=== PATIENT | male | born 1945 | race African-American/Black ===

== ENCOUNTER 2018-03-08 04:43 | Inpatient (IN) | payer OTHER ==
[~2018-03-08] VITALS: Ht 182.9 cm; Wt 105.7 kg
[~2018-03-08 04:43] MED LIST: ASPI325T8 PO; LISI1TAB7 PO; METF500T5 PO; OXYB10TA PO
[2018-03-08] MEDS ORDERED: PANTOPRAZOLE IV PUSH 40 MG VIAL. IVP ONE (06:30)
[2018-03-08] MEDS ORDERED: IV NORMAL SALINE 500ML BAG 500 ML IV ONE (06:30)
--- NOTE | 2018-03-08 06:31 | PHYS DOC ---
Past Medical History Past Medical History: Diabetes-Type II, Hypertension, Other Additional Past Medical Histor: PROSTATE CANCER Past Surgical History: Other Additional Past Surgical Histo: rotator cuff, carpal tunnel, hernia, back Alcohol Use: Heavy Drug Use: None Adult General Chief Complaint Chief Complaint: RECTAL BLEED HPI HPI Patient is a 72 year old male was presenting with rectal bleeding he had multiple episodes of bright red blood per rectum in his diaper this morning no abdominal pain no chest pain no shortness of breath no weakness he has never had this before he is a history of a prostatectomy last year. He is not on anticoagulation no other symptoms Review of Systems Review of Systems Constitutional: Denies fever or chills [] Eyes: Denies change in visual acuity, redness, or eye pain [] HENT: Denies nasal congestion or sore throat [] Respiratory: Denies cough or shortness of breath [] Cardiovascular: No additional information not addressed in HPI [] : Denies dysuria or hematuria [] Endocrine: Denies polyuria or polydipsia [] All other systems were reviewed and found to be within normal limits, except as documented in this note. Current Medications Current Medications Current Medications Medications (Trade) Dose Ordered Sig/Danilo Start Time Stop Time Status Last Admin Dose Admin Pantoprazole Sodium (PROTONIX VIAL for IV PUSH) 40 mg 1X ONCE 03/08/18 06:30 03/08/18 06:35 DC 03/08/18 07:24 40 MG Pantoprazole Sodium 80 mg/ Sodium Chloride 100 ml @ 10 mls/hr Q10H 03/08/18 06:45 03/08/18 07:24 10 MLS/HR Sodium Chloride 500 ml @ 500 mls/hr 1X ONCE 03/08/18 06:30 03/08/18 07:29 DC 03/08/18 07:26 500 MLS/HR Allergies Allergies Allergies Coded Allergies Type Severity Reaction Last Updated Verified No Known Drug Allergies 08/03/13 No Physical Exam Physical Exam Constitutional: Well developed, well nourished, no acute distress, non-toxic appearance. [] HENT: Normocephalic, atraumatic, bilateral external ears normal, oropharynx moist, no oral exudates, nose normal. [] Eyes: PERRLA, EOMI, conjunctiva normal, no discharge. [] Neck: Normal range of motion, no tenderness, supple, no stridor. [] Pulmonary: Normal respiratory effort no increased work of breathing no obvious chest wall trauma Abdomen: Bowel sounds normal, soft, no tenderness, no masses, no pulsatile masses. [] rectal: there is marroon colored stool no external hemorrhoid. Skin: Warm, dry, no erythema, no rash. [] Back: No tenderness, no CVA tenderness. [] Extremities: No tenderness, no cyanosis, no clubbing, ROM intact, no edema. [] Neurologic: Alert and oriented X 3, normal motor function, normal sensory function, no focal deficits noted. [] Psychologic: Affect normal, judgement normal, mood normal. [] Current Patient Data Vital Signs Vital Signs Date Time Temp Pulse Resp B/P (MAP) Pulse Ox O2 Delivery O2 Flow Rate FiO2 03/08/18 06:48 69 179/92 (121) 98 Room Air 03/08/18 05:50 98.2 14 98.2 Lab Values Laboratory Tests Test 03/08/18 06:50 White Blood Count 3.6 x10^3/uL (4.0-11.0) L Red Blood Count 3.74 x10^6/uL (4.30-5.70) L Hemoglobin 12.5 g/dL (13.0-17.5) L Hematocrit 36.6 % (39.0-53.0) L Mean Corpuscular Volume 98 fL (79-100) Mean Corpuscular Hemoglobin 33 pg (25-35) Mean Corpuscular Hemoglobin Concent 34 g/dL (31-37) Red Cell Distribution Width 13.9 % (11.5-14.5) Platelet Count 231 x10^3/uL (140-400) Neutrophils (%) (Auto) 57 % (31-73) Lymphocytes (%) (Auto) 31 % (24-48) Monocytes (%) (Auto) 9 % (0-9) Eosinophils (%) (Auto) 3 % (0-3) Basophils (%) (Auto) 1 % (0-3) Neutrophils # (Auto) 2.0 x10^3uL (1.8-7.7) Lymphocytes # (Auto) 1.1 x10^3/uL (1.0-4.8) Monocytes # (Auto) 0.3 x10^3/uL (0.0-1.1) Eosinophils # (Auto) 0.1 x10^3/uL (0.0-0.7) Basophils # (Auto) 0.0 x10^3/uL (0.0-0.2) Prothrombin Time 12.6 SEC (11.7-14.0) Prothrombin Time INR 1.0 (0.8-1.1) Sodium Level 134 mmol/L (136-145) L Potassium Level 3.8 mmol/L (3.5-5.1) Chloride Level 105 mmol/L (98-107) Carbon Dioxide Level 24 mmol/L (21-32) Anion Gap 5 (6-14) L Blood Urea Nitrogen 18 mg/dL (8-26) Creatinine 0.9 mg/dL (0.7-1.3) Estimated GFR (Cockcroft-Gault) 100.9 BUN/Creatinine Ratio 20 (6-20) Glucose Level 145 mg/dL (70-99) H Calcium Level 8.9 mg/dL (8.5-10.1) Total Bilirubin 0.4 mg/dL (0.2-1.0) Aspartate Amino Transferase (AST) 20 U/L (15-37) Alanine Aminotransferase (ALT) 33 U/L (16-63) Alkaline Phosphatase 64 U/L (46-116) Total Protein 6.4 g/dL (6.4-8.2) Albumin 2.9 g/dL (3.4-5.0) L Albumin/Globulin Ratio 0.8 (1.0-1.7) L Laboratory Tests 03/08/18 06:50 Laboratory Tests 03/08/18 06:50 EKG EKG [] Radiology/Procedures Radiology/Procedures [] Course & Med Decision Making Course & Med Decision Making Pertinent Labs and Imaging studies reviewed. (See chart for details) []GI bleed maroon-colored stool per rectum no previous history of same hemodynamically stable. IV Protonix IV fluids plan to admit for further treatment. admit to [facility] Disclaimer Ofelia Disclaimer This electronic medical record was generated, in whole or in part, using a voice recognition dictation system. Departure Departure Impression: Primary Impression: GI bleed Disposition: ADMITTED INPATIENT Admitting Physician: Xie. Pruitt Condition: STABLE Referrals: PINEDA HENAO Jr, MD (PCP) PETER SPRINGER MD Mar 08, 2018 06:31
[2018-03-08 07:04] LABS: BASO % 1 % (0-3); EOS # 0.1 x10^3/uL (0.0-0.7); EOS % 3 % (0-3); HEMATOCRIT 36.6 % (39.0-53.0); HEMOGLOBIN 12.5 g/dL (13.0-17.5); LYMPH # 1.1 x10^3/uL (1.0-4.8); LYMPH % 31 % (24-48); MEAN CORPUSCULAR HEMOGLOBIN 33 pg (25-35); MEAN CORPUSCULAR HGB CONC 34 g/dL (31-37); MEAN CORPUSCULAR VOLUME 98 fL (79-100); MONO # 0.3 x10^3/uL (0.0-1.1); MONO % 9 % (0-9); NEUT % 57 % (31-73); PLATELET COUNT 231 x10^3/uL (140-400); RED BLOOD COUNT 3.74 x10^6/uL (4.30-5.70); RED CELL DISTRIBUTION WIDTH 13.9 % (11.5-14.5); WHITE BLOOD COUNT 3.6 x10^3/uL (4.0-11.0)
[2018-03-08 07:12] LABS: PROTHROMBIN TIME PATIENT 12.6 SEC (11.7-14.0)
[2018-03-08 07:19] LABS: CALCIUM 8.9 mg/dL (8.5-10.1); CREATININE 0.9 mg/dL (0.7-1.3); GFR 100.9; POTASSIUM 3.8 mmol/L (3.5-5.1)
[2018-03-08 07:21] LABS: ALBUMIN 2.9 g/dL (3.4-5.0); ALBUMIN/GLOBULIN RATIO 0.8 (1.0-1.7); TOTAL BILIRUBIN 0.4 mg/dL (0.2-1.0); TOTAL PROTEIN 6.4 g/dL (6.4-8.2)
[2018-03-08] MEDS: PANTOPRAZOLE SODIUM IV DRIP 80 MG in IV NORMAL SALINE 100ML 100 ML IV SCH ×2 (07:24→20:15)
[2018-03-08 08:14] LABS: FECAL OB PT POSITIVE (NEG)
[2018-03-08] MEDS: hydroCHLOROthiazide 25 MG TABLET PO SCH (09:00)
[2018-03-08] MEDS ORDERED: MORPHINE SULFATE 2 MG/ML VIAL. IV PRN (09:00)
[2018-03-08] MEDS ORDERED: ACETAMINOPHEN 500 MG TABLET PO PRN (09:00)
[2018-03-08] MEDS ORDERED: ONDANSETRON ODT 4 MG TAB.RAPDIS. PO PRN (09:00)
[2018-03-08] MEDS: LISINOPRIL 20 MG TABLET PO SCH (09:00)
[2018-03-08] MEDS ORDERED: ONDANSETRON PF 4 MG/2 ML VIAL. IV PRN (09:00)
[2018-03-08] MEDS ORDERED: cloNIDine HCL 0.1 MG TABLET PO PRN (09:00)
--- NOTE | 2018-03-08 11:13 | EKG ---
[facility] [address] [place] [address] Test Date: 2018-03-08 Test Time: 06:37:03 Pat Name: TONI SINHA Department: Room: 574 1 Gender: M Real Estate Executive Assistant: : 1945 Requested By: PETER SPRINGER Order Number: [id number] Reading MD: Miguel Spencer MD Measurements Intervals [place] Rate: 69 P: -36 SC: 184 QRS: -44 QRSD: 102 T: 99 QT: 404 QTc: 434 Interpretive Statements SINUS RHYTHM ABNORMAL LEFT AXIS DEVIATION LEFT ANTERIOR FASCICULAR BLOCK LVH WITH REPOLARIZATION ABNORMALITY ABNORMAL ECG Electronically Signed On 03-09-2018 10:48:08 CDT by Miguel Spencer MD
[2018-03-08] MEDS ORDERED: ALPRAZolam 0.25 MG TABLET PO PRN (14:00)
[2018-03-08] MEDS ORDERED: NICOTINE 21MG PATCH. TD PRN (14:00)
[2018-03-08] MEDS ORDERED: chlordiazePOXIDE HCL 25 MG CAPSULE PO PRN (14:00)
--- NOTE | 2018-03-08 14:04 | PDOC1 ---
History and Physical Date of Admission Date of Admission DATE: 03/08/18 TIME: 13:58 Identification/Chief Complaint Chief Complaint Maroon stools today Source Source: Caregiver, Chart review, Patient History of Present Illness History of Present Illness 72-year-old -[place] male who does not take any NSAIDs on a daily basis , maroon stools today multiple episodes, so far hemodynamically stable, vital signs and hemoglobin is 12.5. INR is 1.0. Hemoccult positive. Was taking aspirin 325 based on home medications. But today has been called by RN because of still continuing maroon stools. If this continues to happen I will transfer to ICU. No CAT scan ordered, could be diverticular bleed, I will order CAT scan and a stat bleeding scan. GI has been consulted, started on Protonix drip by ER. I will make nothing by mouth for now. Repeat H&H now. Hemoglobin is 12.56 or 7 hours ago. Discussed with RN Smoker,and heavy drinker he admits to me Denies any abdominal cramps, last colonoscopy was maybe over 5 years ago, just polyps Denies family or personal history of colon cancer Denies previous episodes of similar sxs Past Medical History Cardiovascular: HTN Renal/: Prostate Ca. Past Surgical History Past Surgical History: No pertinent history Family History Family History: Hypertension Social History Smoke: 1 pack per day ALCOHOL: heavy Drugs: None Current Problem List Problem List Problems Medical Problems: (1) GI bleed Status: Acute Current Medications Current Medications Current Medications Pantoprazole Sodium 80 mg/ Sodium Chloride 100 ml @ 10 mls/hr Q10H IV Last administered on 03/08/18at 07:24; Start 03/08/18 at 06:45 Pantoprazole Sodium (PROTONIX VIAL for IV PUSH) 40 mg 1X ONCE IVP Last administered on 03/08/18at 07:24; Start 03/08/18 at 06:30; Stop 03/08/18 at 06:35 ; Status DC Sodium Chloride 500 ml @ 500 mls/hr 1X ONCE IV Last administered on at 07:26; Start 03/08/18 at 06:30; Stop 03/08/18 at 07:29; Status DC Acetaminophen (Tylenol) 500 mg PRN Q6HRS PRN PO MILD PAIN / TEMP; Start at 09:00 Ondansetron HCl (Zofran) 4 mg PRN Q6HRS PRN IV NAUSEA/VOMITING; Start 03/08/18 at 09:00 Ondansetron HCl (Zofran Odt) 4 mg PRN Q6HRS PRN PO NAUSEA/VOMITING; Start 03/08 at 09:00 Clonidine HCl (Catapres) 0.1 mg PRN Q1HR PRN PO HYPERTENSION, SEE COMMENTS; Start 03/08/18 at 09:00 Lisinopril (Prinivil) 20 mg DAILY PO ; Start 03/08/18 at 09:00 Morphine Sulfate (Morphine Sulfate) 2 mg PRN Q2HR PRN IV PAIN; Start 03/08/18 at 09:00 Hydrochlorothiazide (Hydrodiuril) 25 mg DAILY PO ; Start 03/08/18 at 09:00 Active Scripts Active Reported Aspirin 325 Mg Tablet 325 Mg PO DAILY Lisinopril-Hctz 20-25 Mg Tab (Lisinopril/Hydrochlorothiazide) 1 Each Tablet 1 Each PO DAILY Allergies Allergies: Coded Allergies: No Known Drug Allergies (Unverified , 08/03/13) ROS Review of System Asper history of present illness, he denies any abdominal cramps, no diarrhea, the rest of ROS negative Physical Exam General: Alert, Oriented X3, Cooperative, No acute distress HEENT: Atraumatic, PERRLA, EOMI, Mucous membr. moist/pink Lungs: Clear to auscultation, Normal air movement Heart: S1S2, RRR, no thrills, no rubs, no gallops Cardiovascular: S1, S2 Breasts: Normal, Rt breast nml w/o mass, Lt breast nml w/o mass, Nipples normal Abdomen: Normal bowel sounds, Soft, No tenderness, No hepatosplenomegaly, No masses Male Genitals Exam: normal genitalia, normal prostate Rectal Exam: not examined PELVIC: Nml ext genitalia Extremities: No clubbing, No cyanosis, No edema, Normal pulses, No tenderness/ swelling Skin: No rashes, No breakdown, No significant lesion Neuro: Normal gait, Normal speech, Strength at 5/5 X4 ext, Normal tone, Sensation intact, Cranial nerves 3-12 NL, Reflexes 2+ Psych/Mental Status: Mental status NL, Mood NL Vitals Vitals Vital Signs Date Time Temp Pulse Resp B/P (MAP) Pulse Ox O2 Delivery O2 Flow Rate FiO2 8/26/18 06:48 69 179/92 (121) 98 Room Air 03/08/18 05:50 98.2 14 98.2 Labs Labs Laboratory Tests Test 03/08/18 06:20 03/08/18 06:50 03/08/18 10:42 Stool Occult Blood Positive (NEG) White Blood Count 3.6 x10^3/uL (4.0-11.0) Red Blood Count 3.74 x10^6/uL (4.30-5.70) Hemoglobin 12.5 g/dL (13.0-17.5) Hematocrit 36.6 % (39.0-53.0) Mean Corpuscular Volume 98 fL (79-100) Mean Corpuscular Hemoglobin 33 pg (25-35) Mean Corpuscular Hemoglobin Concent 34 g/dL (31-37) Red Cell Distribution Width 13.9 % (11.5-14.5) Platelet Count 231 x10^3/uL (140-400) Neutrophils (%) (Auto) 57 % (31-73) Lymphocytes (%) (Auto) 31 % (24-48) Monocytes (%) (Auto) 9 % (0-9) Eosinophils (%) (Auto) 3 % (0-3) Basophils (%) (Auto) 1 % (0-3) Neutrophils # (Auto) 2.0 x10^3uL (1.8-7.7) Lymphocytes # (Auto) 1.1 x10^3/uL (1.0-4.8) Monocytes # (Auto) 0.3 x10^3/uL (0.0-1.1) Eosinophils # (Auto) 0.1 x10^3/uL (0.0-0.7) Basophils # (Auto) 0.0 x10^3/uL (0.0-0.2) Prothrombin Time 12.6 SEC (11.7-14.0) Prothromb Time International Ratio 1.0 (0.8-1.1) Sodium Level 134 mmol/L (136-145) Potassium Level 3.8 mmol/L (3.5-5.1) Chloride Level 105 mmol/L (98-107) Carbon Dioxide Level 24 mmol/L (21-32) Anion Gap 5 (6-14) Blood Urea Nitrogen 18 mg/dL (8-26) Creatinine 0.9 mg/dL (0.7-1.3) Estimated GFR (Cockcroft-Gault) 100.9 BUN/Creatinine Ratio 20 (6-20) Glucose Level 145 mg/dL (70-99) Calcium Level 8.9 mg/dL (8.5-10.1) Total Bilirubin 0.4 mg/dL (0.2-1.0) Aspartate Amino Transf (AST/SGOT) 20 U/L (15-37) Alanine Aminotransferase (ALT/SGPT) 33 U/L (16-63) Alkaline Phosphatase 64 U/L (46-116) Total Protein 6.4 g/dL (6.4-8.2) Albumin 2.9 g/dL (3.4-5.0) Albumin/Globulin Ratio 0.8 (1.0-1.7) Glucose (Fingerstick) 157 mg/dL (70-99) Laboratory Tests Test 03/08/18 06:20 03/08/18 06:50 03/08/18 10:42 Stool Occult Blood Positive (NEG) White Blood Count 3.6 x10^3/uL (4.0-11.0) Red Blood Count 3.74 x10^6/uL (4.30-5.70) Hemoglobin 12.5 g/dL (13.0-17.5) Hematocrit 36.6 % (39.0-53.0) Mean Corpuscular Volume 98 fL (79-100) Mean Corpuscular Hemoglobin 33 pg (25-35) Mean Corpuscular Hemoglobin Concent 34 g/dL (31-37) Red Cell Distribution Width 13.9 % (11.5-14.5) Platelet Count 231 x10^3/uL (140-400) Neutrophils (%) (Auto) 57 % (31-73) Lymphocytes (%) (Auto) 31 % (24-48) Monocytes (%) (Auto) 9 % (0-9) Eosinophils (%) (Auto) 3 % (0-3) Basophils (%) (Auto) 1 % (0-3) Neutrophils # (Auto) 2.0 x10^3uL (1.8-7.7) Lymphocytes # (Auto) 1.1 x10^3/uL (1.0-4.8) Monocytes # (Auto) 0.3 x10^3/uL (0.0-1.1) Eosinophils # (Auto) 0.1 x10^3/uL (0.0-0.7) Basophils # (Auto) 0.0 x10^3/uL (0.0-0.2) Prothrombin Time 12.6 SEC (11.7-14.0) Prothromb Time International Ratio 1.0 (0.8-1.1) Sodium Level 134 mmol/L (136-145) Potassium Level 3.8 mmol/L (3.5-5.1) Chloride Level 105 mmol/L (98-107) Carbon Dioxide Level 24 mmol/L (21-32) Anion Gap 5 (6-14) Blood Urea Nitrogen 18 mg/dL (8-26) Creatinine 0.9 mg/dL (0.7-1.3) Estimated GFR (Cockcroft-Gault) 100.9 BUN/Creatinine Ratio 20 (6-20) Glucose Level 145 mg/dL (70-99) Calcium Level 8.9 mg/dL (8.5-10.1) Total Bilirubin 0.4 mg/dL (0.2-1.0) Aspartate Amino Transf (AST/SGOT) 20 U/L (15-37) Alanine Aminotransferase (ALT/SGPT) 33 U/L (16-63) Alkaline Phosphatase 64 U/L (46-116) Total Protein 6.4 g/dL (6.4-8.2) Albumin 2.9 g/dL (3.4-5.0) Albumin/Globulin Ratio 0.8 (1.0-1.7) Glucose (Fingerstick) 157 mg/dL (70-99) VTE Prophylaxis Ordered VTE Prophylaxis Devices: Contraindicated VTE Pharmacological Prophylaxi: Contraindicated Assessment/Plan Assessment/Plan Active GI bleed, maroon stools Aspirin use in a daily basis Smoker, greater than a pack a day Heavy alcohol drinker Obesity BMI 32 History of prostate cancer remote past History of colonic polyps last colonoscopy Hemoccult-positive Mild hyponatremia Accelerated hypertension POA Plan: Admit, nothing by mouth for now Protonic strip started by ER IV fluids while nothing by mouth GI consult Stat CAT scan of abdomen and bleeding scan H&H now then q6 HOdl ASA If this continues I will transfer to ICU CIWAprotocol Nicotine patch when necessary Control BP Discussed with RN cc 32 PARIS BOJORQUEZ Y Mar 08, 2018 14:04
[2018-03-08] MEDS ORDERED: IOHEXOL 240 MG/ML 50ML VIAL. PO ONE (14:30)
[2018-03-08] MEDS ORDERED: IOHEXOL 300 MG/ML 100ML VIAL. IV ONE (14:30)
[2018-03-08 14:33] LABS: HEMATOCRIT 34.3 % (39.0-53.0); HEMOGLOBIN 11.9 g/dL (13.0-17.5)
[2018-03-08 15:52] VITALS: BP 136/94
--- NOTE | 2018-03-08 15:55 | PDOC ---
Subjective: Subjective: patient in radiology Objective: Vital Signs: Vital Signs Date Time Temp Pulse Resp B/P (MAP) Pulse Ox O2 Delivery O2 Flow Rate FiO2 03/08/18 15:52 97.9 63 18 136/94 (108) 98 Room Air 97.9 Labs: Laboratory Tests Test 03/08/18 10:42 Glucose (Fingerstick) 157 mg/dL (70-99) A/P: Pt in radiology. Will be seen tomorrow. Please call with any new concerns SRAVANI YANEZ MD Mar 08, 2018 15:55
--- NOTE | 2018-03-08 16:13 | RAD ---
EXAM: Abdomen and pelvis CT with intravenous contrast. HISTORY: Rectal bleeding. TECHNIQUE: Computed tomographic images of the abdomen and pelvis were obtained following the administration of 75 cc Omnipaque 300 intravenous contrast. Multiplanar reformatting was performed. *One or more of the following individualized dose reduction techniques were utilized for this examination: 1. Automated exposure control. 2. Adjustment of the mA and/or kV according to patient size. 3. Use of iterative reconstruction technique. COMPARISON: 02/26/2014. FINDINGS: Evaluation of the lower thorax demonstrates posterior dependent and basilar atelectasis. There is no pleural effusion or pneumothorax. There is slight hepatic steatosis with fatty infiltration along the falciform ligament. No suspicious hepatic lesion is seen. The gallbladder, pancreas and spleen are unremarkable. There is a focus of fluid density along the distal body of the pancreas which is likely due to volume averaging of fat rather than a cyst. There are multiple bilateral renal cysts, the largest of which measures 2.7 cm on the right. There is a 2.0 cm left adrenal nodule. There is no obstructive uropathy. The bladder is unremarkable. The appendix is normal in appearance. There is moderate colonic stool. There is distal colonic diverticulosis. There is no convincing diverticulitis. There is no lymphadenopathy. There is no aortic aneurysm. There is a tiny fat-containing umbilical hernia. There is degenerative change throughout the spine and both hips. There are laminectomy changes at L4. IMPRESSION: 1. Distal colonic diverticulosis without convincing diverticulitis. 2. Multiple renal cysts. 3. Suspected slight hepatic steatosis. 4. Tiny umbilical hernia. 5. 2.0 cm left adrenal nodule. The long-term stability favors a benign adenoma. Electronically signed by: Felicita Montoya MD (03/08/2018 4:10 PM) [facility]
--- NOTE | 2018-03-08 18:11 | RAD ---
NUCLEAR MEDICINE TAGGED RBC SCAN Clinical Indication: Maroon bloody stool, several episodes today COMPARISON: CT abdomen pelvis same day Technique: Patient was injected with 24.0 mCi of technetium 99m labeled red blood cells using Ultratag technique. Then anterior dynamic images of the abdomen were obtained for 60 minutes. Findings: There is gradual accumulation of tracer in the left hemiabdomen to indicate an active GI bleed. IMPRESSION: There is gradual accumulation of tracer in the left hemiabdomen to indicate an active GI bleed. In comparing with patient's anatomy on CT from the same day, the area of GI bleed appears to correspond to the distal descending/rectosigmoid colon and may be diverticular in origin. CRITICAL FINDINGS: These findings were discussed with patient's nurse Marti at 6:05 PM on 03/08/2018. Electronically signed by: Eb Canales MD (03/08/2018 6:08 PM) [facility]
[2018-03-08] MEDS: IV NORMAL SALINE 1000ML BAG 1,000 ML IV SCH (18:31)
[2018-03-08 19:00] VITALS: BP 144/72
[2018-03-08 19:56] LABS: HEMATOCRIT 32.3 % (39.0-53.0); HEMOGLOBIN 11.1 g/dL (13.0-17.5)
[2018-03-08 20:10] VITALS: BP 158/74
[2018-03-08 21:00] VITALS: BP 139/71
[2018-03-08 22:00] VITALS: BP 144/66
[2018-03-08 23:00] VITALS: BP 156/82
[2018-03-09] VITALS (16 sets, daily range): BP systolic 119–188; BP diastolic 57–97
[2018-03-09 01:08] LABS: HEMATOCRIT 29.7 % (39.0-53.0); HEMOGLOBIN 10.5 g/dL (13.0-17.5)
[2018-03-09] MEDS: PANTOPRAZOLE SODIUM IV DRIP 80 MG in IV NORMAL SALINE 100ML 100 ML IV SCH (04:44)
[2018-03-09] MEDS: IV NORMAL SALINE 1000ML BAG 1,000 ML IV SCH ×3 (04:52→13:58)
[2018-03-09 07:33] LABS: HEMATOCRIT 31.5 % (39.0-53.0); HEMOGLOBIN 11.1 g/dL (13.0-17.5)
[2018-03-09] MEDS ORDERED: FOLIC ACID 1 MG TABLET. PO SCH (09:00)
[2018-03-09] MEDS ORDERED: THIAMINE 100 MG TABLET. PO SCH (09:00)
[2018-03-09] MEDS: MULTIVITAMIN with MINERAL TABLET. PO SCH (09:00)
[2018-03-09] MEDS: hydroCHLOROthiazide 25 MG TABLET PO SCH (09:28)
[2018-03-09] MEDS: LISINOPRIL 20 MG TABLET PO SCH (09:29)
[2018-03-09] MEDS ORDERED: POLYETHYLENE GLYCOL 3350 17 GM PACKET. PO PRN (10:00)
--- NOTE | 2018-03-09 10:00 | PDOC2 ---
GI CONSULT Reason For Consult: GI Bleed, maroon stools HPI: HPI: 72 y/o male who passed dark red blood several times yesterday - says significant amount. Possibly precipitated by straining and passing hard stools. Denies n/v, reflux/dysphagia, abd pain, diarrhea, and weight loss. No h/o bleeding in the past. On ASA 81mg QD + ibuprofen PRN. Last colonoscopy ~4 years ago @ [facility], reportedly w/ a benign polyp. Distal diverticulosis noted on CT. Bleeding scan was positive in left hemiabdomen. Hgb from 12.5 to 11.5 ( check 5 times since admission) - for comparison, in 14s in 2013 and 2015. MCV, plt, RDW, INR, and BUN are normal. Has been hypertensive. Has passed brown stools in ICU. IR has seen, plans to observe. No previous EGD. No GB, liver, or pancreas history. Does have h/o prostate cancer s/p prostatectomy and radiation. PMH: PMH: HTN, DM, prostate cancer lumbar laminectomy, I&D perirectal abscess, bilateral CTR, prostatectomy, hernia repair FH: Family History: Cancer (father - colon) Social History: Smoke: 1 pack per day ALCOHOL: heavy (1.5 pints daily) Drugs: None ROS: GEN: Denies fevers, chills, sweats HEENT: Denies blurred vision, sore throat CV: Denies chest pain RESP: Denies shortness of air, cough GI: Per HPI : Denies hematuria, dysuria ENDO: Denies weight changes NEURO: Denies confusion, dizziness MSK: Denies weakness, joint pain/swelling SKIN: Denies jaundice, pruritus Vitals: Vitals: Vital Signs Date Time Temp Pulse Resp B/P (MAP) Pulse Ox O2 Delivery O2 Flow Rate FiO2 03/09/18 09:29 80 160/63 03/09/18 09:00 16 99 Room Air 03/09/18 07:00 98.2 98.2 Labs: Labs: Laboratory Tests Test 03/08/18 10:42 03/08/18 14:25 03/08/18 17:17 03/08/18 19:40 Glucose (Fingerstick) 157 mg/dL (70-99) 98 mg/dL (70-99) Hemoglobin 11.9 g/dL (13.0-17.5) 11.1 g/dL (13.0-17.5) Hematocrit 34.3 % (39.0-53.0) 32.3 % (39.0-53.0) Mean Corpuscular Hemoglobin Concent 35 g/dL (31-37) 34 g/dL (31-37) Test 03/09/18 00:30 03/09/18 07:06 Hemoglobin 10.5 g/dL (13.0-17.5) 11.1 g/dL (13.0-17.5) Hematocrit 29.7 % (39.0-53.0) 31.5 % (39.0-53.0) Mean Corpuscular Hemoglobin Concent 36 g/dL (31-37) 35 g/dL (31-37) Allergies: Coded Allergies: No Known Drug Allergies (Unverified , 08/03/13) Medications: Current Medications Medications (Trade) Dose Ordered Sig/Danilo Route PRN Reason Start Time Stop Time Status Last Admin Dose Admin Sodium Chloride 1,000 ml @ 100 mls/hr Q10H IV 03/08/18 14:00 03/09/18 04:52 Iohexol (Omnipaque 300 Mg/ml) 75 ml 1X ONCE IV 03/08/18 14:30 03/08/18 14:31 DC 03/08/18 14:30 Iohexol (Omnipaque 240 Mg/ml) 50 ml 1X ONCE PO 03/08/18 14:30 03/08/18 14:31 DC 03/08/18 14:30 Imaging: Imaging: CT A/P IMPRESSION: 1. Distal colonic diverticulosis without convincing diverticulitis. 2. Multiple renal cysts. 3. Suspected slight hepatic steatosis. 4. Tiny umbilical hernia. 5. 2.0 cm left adrenal nodule. The long-term stability favors a benign adenoma. GI Bleed Scan IMPRESSION: There is gradual accumulation of tracer in the left hemiabdomen to indicate an active GI bleed. In comparing with patient's anatomy on CT from the same day, the area of GI bleed appears to correspond to the distal descending/ rectosigmoid colon and may be diverticular in origin. PE: GEN: NAD HEENT: Atraumatic, PERRL LUNGS: CTAB HEART: RRR ABD: NABS, S/ND/NT EXTREMITY: No edema SKIN: No rashes, no jaundice NEURO/PSYCH: A & O 3 A/P: A/P: Rectal bleeding - resolved -distal diverticulosis on CT, bleeding scan + left abd -h/o prostate cancer s/p surgery and radiation -?element of constipation CRC screen, h/o polyp, FH colon cancer -last colonoscopy ~4 years ago Alcohol overuse -- Bleeding seems resolved, Hgb stable. Try clears, observe out of ICU. Can consider inpt or outpt colonoscopy depending on clinical course - will follow-up this afternoon. Change PPI from drip to PO, add Miralax PRN. SYED BROWN Mar 09, 2018 10:00
[2018-03-09] MEDS: PANTOPRAZOLE 40 MG TABLET.DR. PO SCH (10:47)
--- NOTE | 2018-03-09 12:22 | PDOC ---
PROGRESS NOTES Chief Complaint Chief Complaint Active GI bleed, maroon stools 2/2 divercular bleeding likely Aspirin use in a daily basis , no NSAIDS Smoker, greater than a pack a day Heavy alcohol drinker Obesity BMI 32 History of prostate cancer remote past History of colonic polyps last colonoscopy Hemoccult-positive Mild hyponatremia Accelerated hypertension POA left adrenal 2cm adenoma plan: fu with GI ok transfer out of icu on ivf, clear liquid diet off protonix drip, protonix 40mg po daily cont home HTN meds, hold asa for now talked to GI, talked to at bedside History of Present Illness History of Present Illness ROS: no fever, chills, sob or chest pain 2 brown BM overnight no abd pain, no NV hb stable at 11 + bleeding scan but neg CTA. Vitals Vitals Vital Signs Date Time Temp Pulse Resp B/P (MAP) Pulse Ox O2 Delivery O2 Flow Rate FiO2 03/09/18 12:00 98.7 79 16 159/67 (97) 99 Room Air 98.7 Physical Exam General: Alert, Oriented X3, Cooperative, No acute distress Heart: Regular rate, Normal S1, Normal S2 Lungs: Clear Abdomen: Normal bowel sounds, Soft, No tenderness, No hepatosplenomegaly, No masses Extremities: No clubbing, No cyanosis, No edema, Normal pulses, No tenderness/ swelling Skin: No rashes, No breakdown, No significant lesion Labs LABS Laboratory Tests Test 03/08/18 14:25 03/08/18 17:17 03/08/18 19:40 03/09/18 00:30 Hemoglobin 11.9 g/dL (13.0-17.5) 11.1 g/dL (13.0-17.5) 10.5 g/dL (13.0-17.5) Hematocrit 34.3 % (39.0-53.0) 32.3 % (39.0-53.0) 29.7 % (39.0-53.0) Mean Corpuscular Hemoglobin Concent 35 g/dL (31-37) 34 g/dL (31-37) 36 g/dL (31-37) Glucose (Fingerstick) 98 mg/dL (70-99) Test 03/09/18 07:06 Hemoglobin 11.1 g/dL (13.0-17.5) Hematocrit 31.5 % (39.0-53.0) Mean Corpuscular Hemoglobin Concent 35 g/dL (31-37) Assessment and Plan Assessmemt and Plan Problems Medical Problems: (1) GI bleed Status: Acute Comment Review of Relevant I have reviewed the following items sona (where applicable) has been applied. Labs Laboratory Tests Test 03/08/18 06:20 03/08/18 06:50 03/08/18 10:42 03/08/18 14:25 Stool Occult Blood Positive (NEG) White Blood Count 3.6 x10^3/uL (4.0-11.0) Red Blood Count 3.74 x10^6/uL (4.30-5.70) Hemoglobin 12.5 g/dL (13.0-17.5) 11.9 g/dL (13.0-17.5) Hematocrit 36.6 % (39.0-53.0) 34.3 % (39.0-53.0) Mean Corpuscular Volume 98 fL (79-100) Mean Corpuscular Hemoglobin 33 pg (25-35) Mean Corpuscular Hemoglobin Concent 34 g/dL (31-37) 35 g/dL (31-37) Red Cell Distribution Width 13.9 % (11.5-14.5) Platelet Count 231 x10^3/uL (140-400) Neutrophils (%) (Auto) 57 % (31-73) Lymphocytes (%) (Auto) 31 % (24-48) Monocytes (%) (Auto) 9 % (0-9) Eosinophils (%) (Auto) 3 % (0-3) Basophils (%) (Auto) 1 % (0-3) Neutrophils # (Auto) 2.0 x10^3uL (1.8-7.7) Lymphocytes # (Auto) 1.1 x10^3/uL (1.0-4.8) Monocytes # (Auto) 0.3 x10^3/uL (0.0-1.1) Eosinophils # (Auto) 0.1 x10^3/uL (0.0-0.7) Basophils # (Auto) 0.0 x10^3/uL (0.0-0.2) Prothrombin Time 12.6 SEC (11.7-14.0) Prothromb Time International Ratio 1.0 (0.8-1.1) Sodium Level 134 mmol/L (136-145) Potassium Level 3.8 mmol/L (3.5-5.1) Chloride Level 105 mmol/L (98-107) Carbon Dioxide Level 24 mmol/L (21-32) Anion Gap 5 (6-14) Blood Urea Nitrogen 18 mg/dL (8-26) Creatinine 0.9 mg/dL (0.7-1.3) Estimated GFR (Cockcroft-Gault) 100.9 BUN/Creatinine Ratio 20 (6-20) Glucose Level 145 mg/dL (70-99) Calcium Level 8.9 mg/dL (8.5-10.1) Total Bilirubin 0.4 mg/dL (0.2-1.0) Aspartate Amino Transf (AST/SGOT) 20 U/L (15-37) Alanine Aminotransferase (ALT/SGPT) 33 U/L (16-63) Alkaline Phosphatase 64 U/L (46-116) Total Protein 6.4 g/dL (6.4-8.2) Albumin 2.9 g/dL (3.4-5.0) Albumin/Globulin Ratio 0.8 (1.0-1.7) Glucose (Fingerstick) 157 mg/dL (70-99) Test 03/08/18 17:17 03/08/18 19:40 03/09/18 00:30 03/09/18 07:06 Glucose (Fingerstick) 98 mg/dL (70-99) Hemoglobin 11.1 g/dL (13.0-17.5) 10.5 g/dL (13.0-17.5) 11.1 g/dL (13.0-17.5) Hematocrit 32.3 % (39.0-53.0) 29.7 % (39.0-53.0) 31.5 % (39.0-53.0) Mean Corpuscular Hemoglobin Concent 34 g/dL (31-37) 36 g/dL (31-37) 35 g/dL (31-37) Laboratory Tests Test 03/08/18 14:25 03/08/18 17:17 03/08/18 19:40 03/09/18 00:30 Hemoglobin 11.9 g/dL (13.0-17.5) 11.1 g/dL (13.0-17.5) 10.5 g/dL (13.0-17.5) Hematocrit 34.3 % (39.0-53.0) 32.3 % (39.0-53.0) 29.7 % (39.0-53.0) Mean Corpuscular Hemoglobin Concent 35 g/dL (31-37) 34 g/dL (31-37) 36 g/dL (31-37) Glucose (Fingerstick) 98 mg/dL (70-99) Test 03/09/18 07:06 Hemoglobin 11.1 g/dL (13.0-17.5) Hematocrit 31.5 % (39.0-53.0) Mean Corpuscular Hemoglobin Concent 35 g/dL (31-37) Medications Current Medications Pantoprazole Sodium 80 mg/ Sodium Chloride 100 ml @ 10 mls/hr Q10H IV Last administered on 03/09/18at 04:44; Start 03/08/18 at 06:45; Stop 03/09/18 at 10:01 ; Status DC Pantoprazole Sodium (PROTONIX VIAL for IV PUSH) 40 mg 1X ONCE IVP Last administered on 03/08/18at 07:24; Start 03/08/18 at 06:30; Stop 03/08/18 at 06:35 ; Status DC Sodium Chloride 500 ml @ 500 mls/hr 1X ONCE IV Last administered on at 07:26; Start 03/08/18 at 06:30; Stop 03/08/18 at 07:29; Status DC Acetaminophen (Tylenol) 500 mg PRN Q6HRS PRN PO MILD PAIN / TEMP; Start at 09:00 Ondansetron HCl (Zofran) 4 mg PRN Q6HRS PRN IV NAUSEA/VOMITING; Start 03/08/18 at 09:00 Ondansetron HCl (Zofran Odt) 4 mg PRN Q6HRS PRN PO NAUSEA/VOMITING; Start 03/08 at 09:00 Clonidine HCl (Catapres) 0.1 mg PRN Q1HR PRN PO HYPERTENSION, SEE COMMENTS; Start 03/08/18 at 09:00 Lisinopril (Prinivil) 20 mg DAILY PO Last administered on 03/09/18at 09:29; Start 03/08/18 at 09:00 Morphine Sulfate (Morphine Sulfate) 2 mg PRN Q2HR PRN IV PAIN; Start 03/08/18 at 09:00 Hydrochlorothiazide (Hydrodiuril) 25 mg DAILY PO Last administered on at 09:28; Start 03/08/18 at 09:00 Sodium Chloride 1,000 ml @ 100 mls/hr Q10H IV Last administered on 03/09/18at 10:47; Start 03/08/18 at 14:00 Nicotine (Nicoderm Cq 21mg) 1 patch PRN DAILY PRN TD SMOKING CESSATION; Start 03/08/18 at 14:00 Chlordiazepoxide (Librium) 25 mg PRN Q6HRS PRN PO ANXIETY / AGITATION 2ND CHOICE; Start 03/08/18 at 14:00 Alprazolam (Xanax) 0.25 mg PRN Q8HRS PRN PO ANXIETY / AGITATION 1ST CHOICE; Start 03/08/18 at 14:00 Multivitamins (Thera M Plus) 1 tab DAILY PO ; Start 03/09/18 at 09:00 Thiamine Mononitrate (Vitamin B-1) 100 mg DAILY PO ; Start 03/09/18 at 09:00 Folic Acid (Folic Acid) 1 mg DAILY PO ; Start 03/09/18 at 09:00; Stop 03/09/18 at 09:00; Status DC Iohexol (Omnipaque 300 Mg/ml) 75 ml 1X ONCE IV Last administered on 03/08/18at 14:30; Start 03/08/18 at 14:30; Stop 03/08/18 at 14:31; Status DC Iohexol (Omnipaque 240 Mg/ml) 50 ml 1X ONCE PO Last administered on 03/08/18at 14:30; Start 03/08/18 at 14:30; Stop 03/08/18 at 14:31; Status DC Pantoprazole Sodium (Protonix) 40 mg DAILYAC PO Last administered on 03/09/18at 10:47; Start 03/09/18 at 10:30 Polyethylene Glycol (miraLAX PACKET) 17 gm PRN DAILY PRN PO CONSTIPATION; Start 03/09/18 at 10:00 Active Scripts Active Reported Aspirin 325 Mg Tablet 325 Mg PO DAILY Lisinopril-Hctz 20-25 Mg Tab (Lisinopril/Hydrochlorothiazide) 1 Each Tablet 1 Each PO DAILY Vitals/I & O Vital Sign - Last 24 Hours 03/08/18 03/08/18 03/08/18 03/08/18 15:52 19:00 20:10 21:00 Temp 97.9 97.9 97.2 97.9 97.9 97.2 Pulse 63 64 61 62 Resp 18 18 16 15 B/P (MAP) 136/94 (108) 144/72 (96) 158/74 (102) 139/71 (93) Pulse Ox 98 98 100 100 O2 Delivery Room Air Room Air Room Air Room Air 03/08/18 03/08/18 03/09/18 03/09/18 22:00 23:00 00:00 01:00 Temp 99.1 99.1 Pulse 64 64 63 62 Resp 15 20 16 10 B/P (MAP) 144/66 (92) 156/82 (106) 150/68 (95) 165/88 (113) Pulse Ox 100 97 100 100 O2 Delivery Room Air Room Air Room Air Room Air 03/09/18 03/09/18 03/09/18 03/09/18 02:00 03:00 04:00 05:00 Temp 98.1 98.1 Pulse 67 66 70 66 Resp 23 17 18 17 B/P (MAP) 155/89 (111) 142/79 (100) 188/97 (127) 168/89 (115) Pulse Ox 100 99 99 99 O2 Delivery Room Air Room Air Room Air Room Air 03/09/18 03/09/18 03/09/18 03/09/18 06:00 07:00 08:00 08:00 Temp 98.2 98.2 Pulse 70 66 80 Resp 6 16 6 B/P (MAP) 148/63 (91) 152/63 (92) 160/63 (95) Pulse Ox 99 98 99 O2 Delivery Room Air Room Air Room Air Room Air 03/09/18 03/09/18 03/09/18 03/09/18 09:00 09:29 10:00 12:00 Temp 98.7 98.7 Pulse 80 80 70 79 Resp 16 16 16 B/P (MAP) 152/67 (95) 160/63 155/67 (96) 159/67 (97) Pulse Ox 99 99 99 O2 Delivery Room Air Room Air Room Air Intake and Output 03/08/18 03/08/18 03/09/18 15:00 23:00 07:00 Intake Total 500 ml 888.2 ml Output Total 250 ml Balance 500 ml 638.2 ml ANNIE BARONE MD Mar 09, 2018 12:21
[2018-03-10 03:08] VITALS: BP 150/69
[2018-03-10 05:42] LABS: BASO % 1 % (0-3); EOS # 0.1 x10^3/uL (0.0-0.7); EOS % 3 % (0-3); HEMATOCRIT 30.6 % (39.0-53.0); HEMOGLOBIN 10.7 g/dL (13.0-17.5); LYMPH # 1.2 x10^3/uL (1.0-4.8); LYMPH % 34 % (24-48); MEAN CORPUSCULAR HEMOGLOBIN 34 pg (25-35); MEAN CORPUSCULAR HGB CONC 35 g/dL (31-37); MEAN CORPUSCULAR VOLUME 97 fL (79-100); MONO # 0.2 x10^3/uL (0.0-1.1); MONO % 7 % (0-9); NEUT # 1.9 x10^3uL (1.8-7.7); NEUT % 56 % (31-73); PLATELET COUNT 229 x10^3/uL (140-400); RED BLOOD COUNT 3.16 x10^6/uL (4.30-5.70); WHITE BLOOD COUNT 3.4 x10^3/uL (4.0-11.0)
[2018-03-10 05:46] LABS: CREATININE 0.9 mg/dL (0.7-1.3); GFR 100.9; POTASSIUM 3.7 mmol/L (3.5-5.1)
[2018-03-10 07:44] VITALS: BP 145/94
--- NOTE | 2018-03-10 08:47 | PDOC ---
Subjective: Subjective: Feels great, no bleeding, wants to go to work and have outpt colonoscopy as we discussed yesterday afternoon w/ his . Objective: Objective: Called by floor emt - he's anxious to leave the hospital and go to work. D/w RN - no bleeding, tolerating clears. Vital Signs: Vital Signs Date Time Temp Pulse Resp B/P (MAP) Pulse Ox O2 Delivery O2 Flow Rate FiO2 03/10/18 07:44 97.9 64 18 145/94 (111) 98 Room Air 97.9 Labs: Laboratory Tests Test 03/10/18 04:43 White Blood Count 3.4 x10^3/uL Red Blood Count 3.16 x10^6/uL Hemoglobin 10.7 g/dL Hematocrit 30.6 % Mean Corpuscular Volume 97 fL Mean Corpuscular Hemoglobin 34 pg Mean Corpuscular Hemoglobin Concent 35 g/dL Red Cell Distribution Width 14.0 % Platelet Count 229 x10^3/uL Neutrophils (%) (Auto) 56 % Lymphocytes (%) (Auto) 34 % Monocytes (%) (Auto) 7 % Eosinophils (%) (Auto) 3 % Basophils (%) (Auto) 1 % Neutrophils # (Auto) 1.9 x10^3uL Lymphocytes # (Auto) 1.2 x10^3/uL Monocytes # (Auto) 0.2 x10^3/uL Eosinophils # (Auto) 0.1 x10^3/uL Basophils # (Auto) 0.0 x10^3/uL Sodium Level 140 mmol/L Potassium Level 3.7 mmol/L Chloride Level 107 mmol/L Carbon Dioxide Level 29 mmol/L Anion Gap 4 Blood Urea Nitrogen 10 mg/dL Creatinine 0.9 mg/dL Estimated GFR (Cockcroft-Gault) 100.9 Glucose Level 136 mg/dL Calcium Level 9.0 mg/dL PE: GEN: NAD, walking around room LUNGS: room air ABD: stable distention NEURO/PSYCH: A & O 3 A/P: Probable diverticular bleed -- Hematochezia resolved w/ stable Hgb. Offered inpt colonoscopy - he prefers to pursue as outpt. Our office will arrange. GEATCHEW WILEY per primary. SYED BROWN Mar 10, 2018 08:47
[2018-03-10] MEDS: MULTIVITAMIN with MINERAL TABLET. PO SCH (09:23)
[2018-03-10] MEDS: hydroCHLOROthiazide 25 MG TABLET PO SCH (09:23)
[2018-03-10] MEDS: PANTOPRAZOLE 40 MG TABLET.DR. PO SCH (09:23)
[2018-03-10 09:24] VITALS: BP 145/94
[2018-03-10] MEDS: LISINOPRIL 20 MG TABLET PO SCH (09:24)
--- NOTE | 2018-03-10 12:18 | PDOC ---
PROGRESS NOTES Chief Complaint Chief Complaint Active GI bleed, maroon stools 2/2 divercular bleeding likely Aspirin use in a daily basis , no NSAIDS Smoker, greater than a pack a day Heavy alcohol drinker Obesity BMI 32 History of prostate cancer remote past History of colonic polyps last colonoscopy Hemoccult-positive Mild hyponatremia Accelerated hypertension POA left adrenal 2cm adenoma History of Present Illness History of Present Illness Pt seen and examined Dw nurse present Pt eager to get home so he can go to work Vitals Vitals Vital Signs Date Time Temp Pulse Resp B/P (MAP) Pulse Ox O2 Delivery O2 Flow Rate FiO2 03/10/18 09:24 64 145/94 03/10/18 08:00 Room Air 03/10/18 07:44 97.9 18 98 97.9 Physical Exam General: Alert, Oriented X3, Cooperative, No acute distress Heart: Regular rate, Normal S1, Normal S2 Lungs: Clear Abdomen: Soft, No tenderness, No masses Extremities: No clubbing, No cyanosis, No edema, Normal pulses, No tenderness/ swelling Skin: No rashes, No breakdown, No significant lesion Labs LABS Laboratory Tests Test 03/10/18 04:43 White Blood Count 3.4 x10^3/uL (4.0-11.0) Red Blood Count 3.16 x10^6/uL (4.30-5.70) Hemoglobin 10.7 g/dL (13.0-17.5) Hematocrit 30.6 % (39.0-53.0) Mean Corpuscular Volume 97 fL (79-100) Mean Corpuscular Hemoglobin 34 pg (25-35) Mean Corpuscular Hemoglobin Concent 35 g/dL (31-37) Red Cell Distribution Width 14.0 % (11.5-14.5) Platelet Count 229 x10^3/uL (140-400) Neutrophils (%) (Auto) 56 % (31-73) Lymphocytes (%) (Auto) 34 % (24-48) Monocytes (%) (Auto) 7 % (0-9) Eosinophils (%) (Auto) 3 % (0-3) Basophils (%) (Auto) 1 % (0-3) Neutrophils # (Auto) 1.9 x10^3uL (1.8-7.7) Lymphocytes # (Auto) 1.2 x10^3/uL (1.0-4.8) Monocytes # (Auto) 0.2 x10^3/uL (0.0-1.1) Eosinophils # (Auto) 0.1 x10^3/uL (0.0-0.7) Basophils # (Auto) 0.0 x10^3/uL (0.0-0.2) Sodium Level 140 mmol/L (136-145) Potassium Level 3.7 mmol/L (3.5-5.1) Chloride Level 107 mmol/L (98-107) Carbon Dioxide Level 29 mmol/L (21-32) Anion Gap 4 (6-14) Blood Urea Nitrogen 10 mg/dL (8-26) Creatinine 0.9 mg/dL (0.7-1.3) Estimated GFR (Cockcroft-Gault) 100.9 Glucose Level 136 mg/dL (70-99) Calcium Level 9.0 mg/dL (8.5-10.1) Review of Systems Review of Systems Denies pain Denies weakness Assessment and Plan Assessmemt and Plan Problems Medical Problems: (1) GI bleed Status: Acute Active GI bleed, maroon stools Aspirin use in a daily basis Smoker, greater than a pack a day Heavy alcohol drinker Obesity BMI 32 History of prostate cancer remote past History of colonic polyps last colonoscopy Hemoccult-positive Mild hyponatremia Accelerated hypertension POA Plan: Probable D/C to home today Home meds Fu with PCP in 1 week Comment Review of Relevant I have reviewed the following items sona (where applicable) has been applied. Labs Laboratory Tests Test 03/08/18 14:25 03/08/18 17:17 03/08/18 19:40 03/08/18 20:00 Hemoglobin 11.9 g/dL (13.0-17.5) 11.1 g/dL (13.0-17.5) Hematocrit 34.3 % (39.0-53.0) 32.3 % (39.0-53.0) Mean Corpuscular Hemoglobin Concent 35 g/dL (31-37) 34 g/dL (31-37) Glucose (Fingerstick) 98 mg/dL (70-99) Nasal Screen MRSA (PCR) Negative (Negative) Test 03/09/18 00:30 03/09/18 07:06 8/28/18 04:43 Hemoglobin 10.5 g/dL (13.0-17.5) 11.1 g/dL (13.0-17.5) 10.7 g/dL (13.0-17.5) Hematocrit 29.7 % (39.0-53.0) 31.5 % (39.0-53.0) 30.6 % (39.0-53.0) Mean Corpuscular Hemoglobin Concent 36 g/dL (31-37) 35 g/dL (31-37) 35 g/dL (31-37) White Blood Count 3.4 x10^3/uL (4.0-11.0) Red Blood Count 3.16 x10^6/uL (4.30-5.70) Mean Corpuscular Volume 97 fL (79-100) Mean Corpuscular Hemoglobin 34 pg (25-35) Red Cell Distribution Width 14.0 % (11.5-14.5) Platelet Count 229 x10^3/uL (140-400) Neutrophils (%) (Auto) 56 % (31-73) Lymphocytes (%) (Auto) 34 % (24-48) Monocytes (%) (Auto) 7 % (0-9) Eosinophils (%) (Auto) 3 % (0-3) Basophils (%) (Auto) 1 % (0-3) Neutrophils # (Auto) 1.9 x10^3uL (1.8-7.7) Lymphocytes # (Auto) 1.2 x10^3/uL (1.0-4.8) Monocytes # (Auto) 0.2 x10^3/uL (0.0-1.1) Eosinophils # (Auto) 0.1 x10^3/uL (0.0-0.7) Basophils # (Auto) 0.0 x10^3/uL (0.0-0.2) Sodium Level 140 mmol/L (136-145) Potassium Level 3.7 mmol/L (3.5-5.1) Chloride Level 107 mmol/L (98-107) Carbon Dioxide Level 29 mmol/L (21-32) Anion Gap 4 (6-14) Blood Urea Nitrogen 10 mg/dL (8-26) Creatinine 0.9 mg/dL (0.7-1.3) Estimated GFR (Cockcroft-Gault) 100.9 Glucose Level 136 mg/dL (70-99) Calcium Level 9.0 mg/dL (8.5-10.1) Laboratory Tests Test 03/10/18 04:43 White Blood Count 3.4 x10^3/uL (4.0-11.0) Red Blood Count 3.16 x10^6/uL (4.30-5.70) Hemoglobin 10.7 g/dL (13.0-17.5) Hematocrit 30.6 % (39.0-53.0) Mean Corpuscular Volume 97 fL (79-100) Mean Corpuscular Hemoglobin 34 pg (25-35) Mean Corpuscular Hemoglobin Concent 35 g/dL (31-37) Red Cell Distribution Width 14.0 % (11.5-14.5) Platelet Count 229 x10^3/uL (140-400) Neutrophils (%) (Auto) 56 % (31-73) Lymphocytes (%) (Auto) 34 % (24-48) Monocytes (%) (Auto) 7 % (0-9) Eosinophils (%) (Auto) 3 % (0-3) Basophils (%) (Auto) 1 % (0-3) Neutrophils # (Auto) 1.9 x10^3uL (1.8-7.7) Lymphocytes # (Auto) 1.2 x10^3/uL (1.0-4.8) Monocytes # (Auto) 0.2 x10^3/uL (0.0-1.1) Eosinophils # (Auto) 0.1 x10^3/uL (0.0-0.7) Basophils # (Auto) 0.0 x10^3/uL (0.0-0.2) Sodium Level 140 mmol/L (136-145) Potassium Level 3.7 mmol/L (3.5-5.1) Chloride Level 107 mmol/L (98-107) Carbon Dioxide Level 29 mmol/L (21-32) Anion Gap 4 (6-14) Blood Urea Nitrogen 10 mg/dL (8-26) Creatinine 0.9 mg/dL (0.7-1.3) Estimated GFR (Cockcroft-Gault) 100.9 Glucose Level 136 mg/dL (70-99) Calcium Level 9.0 mg/dL (8.5-10.1) Medications Current Medications Pantoprazole Sodium 80 mg/ Sodium Chloride 100 ml @ 10 mls/hr Q10H IV Last administered on 03/09/18at 04:44; Start 03/08/18 at 06:45; Stop 03/09/18 at 10:01 ; Status DC Pantoprazole Sodium (PROTONIX VIAL for IV PUSH) 40 mg 1X ONCE IVP Last administered on 03/08/18at 07:24; Start 03/08/18 at 06:30; Stop 03/08/18 at 06:35 ; Status DC Sodium Chloride 500 ml @ 500 mls/hr 1X ONCE IV Last administered on at 07:26; Start 03/08/18 at 06:30; Stop 03/08/18 at 07:29; Status DC Acetaminophen (Tylenol) 500 mg PRN Q6HRS PRN PO MILD PAIN / TEMP; Start at 09:00; Stop 03/10/18 at 10:20; Status DC Ondansetron HCl (Zofran) 4 mg PRN Q6HRS PRN IV NAUSEA/VOMITING; Start 03/08/18 at 09:00; Stop 03/10/18 at 10:20; Status DC Ondansetron HCl (Zofran Odt) 4 mg PRN Q6HRS PRN PO NAUSEA/VOMITING; Start 03/08 at 09:00; Stop 03/10/18 at 10:20; Status DC Clonidine HCl (Catapres) 0.1 mg PRN Q1HR PRN PO HYPERTENSION, SEE COMMENTS; Start 03/08/18 at 09:00; Stop 03/10/18 at 10:20; Status DC Lisinopril (Prinivil) 20 mg DAILY PO Last administered on 03/10/18at 09:24; Start 03/08/18 at 09:00; Stop 03/10/18 at 10:20; Status DC Morphine Sulfate (Morphine Sulfate) 2 mg PRN Q2HR PRN IV PAIN; Start 03/08/18 at 09:00; Stop 03/10/18 at 10:20; Status DC Hydrochlorothiazide (Hydrodiuril) 25 mg DAILY PO Last administered on at 09:23; Start 03/08/18 at 09:00; Stop 03/10/18 at 10:20; Status DC Sodium Chloride 1,000 ml @ 100 mls/hr Q10H IV Last administered on 03/09/18at 13:58; Start 03/08/18 at 14:00; Stop 03/10/18 at 10:20; Status DC Nicotine (Nicoderm Cq 21mg) 1 patch PRN DAILY PRN TD SMOKING CESSATION; Start 03/08/18 at 14:00; Stop 03/10/18 at 10:20; Status DC Chlordiazepoxide (Librium) 25 mg PRN Q6HRS PRN PO ANXIETY / AGITATION 2ND CHOICE; Start 03/08/18 at 14:00; Stop 03/10/18 at 10:20; Status DC Alprazolam (Xanax) 0.25 mg PRN Q8HRS PRN PO ANXIETY / AGITATION 1ST CHOICE; Start 03/08/18 at 14:00; Stop 03/10/18 at 10:20; Status DC Multivitamins (Thera M Plus) 1 tab DAILY PO Last administered on 03/10/18at 09: 23; Start 03/09/18 at 09:00; Stop 03/10/18 at 10:20; Status DC Thiamine Mononitrate (Vitamin B-1) 100 mg DAILY PO ; Start 03/09/18 at 09:00; Stop 03/10/18 at 10:20; Status DC Folic Acid (Folic Acid) 1 mg DAILY PO ; Start 03/09/18 at 09:00; Stop 03/09/18 at 09:00; Status DC Iohexol (Omnipaque 300 Mg/ml) 75 ml 1X ONCE IV Last administered on 03/08/18at 14:30; Start 03/08/18 at 14:30; Stop 03/08/18 at 14:31; Status DC Iohexol (Omnipaque 240 Mg/ml) 50 ml 1X ONCE PO Last administered on 03/08/18at 14:30; Start 03/08/18 at 14:30; Stop 03/08/18 at 14:31; Status DC Pantoprazole Sodium (Protonix) 40 mg DAILYAC PO Last administered on 03/10/18at 09:23; Start 03/09/18 at 10:30; Stop 03/10/18 at 10:20; Status DC Polyethylene Glycol (miraLAX PACKET) 17 gm PRN DAILY PRN PO CONSTIPATION; Start 03/09/18 at 10:00; Stop 03/10/18 at 10:20; Status DC Active Scripts Active Reported Aspirin 325 Mg Tablet 325 Mg PO DAILY Lisinopril-Hctz 20-25 Mg Tab (Lisinopril/Hydrochlorothiazide) 1 Each Tablet 1 Each PO DAILY Vitals/I & O Vital Sign - Last 24 Hours 03/09/18 03/09/18 03/09/18 03/09/18 13:24 16:00 19:00 19:45 Temp 97.9 97.7 98.1 97.9 97.7 98.1 Pulse 81 72 66 Resp 16 24 20 B/P (MAP) 174/85 (114) 119/57 (77) 170/79 (109) Pulse Ox 97 100 100 O2 Delivery Room Air Room Air Room Air Room Air 03/09/18 03/10/18 03/10/18 03/10/18 23:00 03:08 07:44 08:00 Temp 97.9 97.4 97.9 97.9 97.4 97.9 Pulse 71 61 64 Resp 20 20 18 B/P (MAP) 181/89 (119) 150/69 (96) 145/94 (111) Pulse Ox 98 98 98 O2 Delivery Room Air Room Air Room Air Room Air 03/10/18 09:24 Pulse 64 B/P (MAP) 145/94 Intake and Output 03/09/18 03/09/18 03/10/18 15:00 23:00 07:00 Intake Total 530 ml Output Total 1900 ml Balance 530 ml -1900 ml BRANDON CHUN III DO Mar 10, 2018 12:17
--- NOTE | 2018-03-10 19:29 | DS ---
DATE OF DISCHARGE: 03/10/2018 ADMISSION DIAGNOSIS: Gastrointestinal bleed with diverticulitis. DISCHARGE DIAGNOSIS: Resolving diverticulitis. CONSULTS: GI. PROCEDURES: None. HOSPITAL COURSE: The patient is a pleasant middle-aged male, who presented with rectal bleeding. He was admitted. We consulted GI. They felt that he probably had diverticular disease with diverticulitis and bleeding. This was confirmed on bleeding scan. The patient was treated with IV antibiotics and fluids today, he was doing great. He insisted on going home. We plan to discharge with close outpatient followup. DISPOSITION: Home. ACTIVITY: As tolerated. DIET: Low sodium. MEDICATIONS: Please see the MRAD. TOTAL TIME ON DISCHARGE: 33 minutes. BRANDON CHUN DO DR: YAJAIRA/shamir JOB#: [id number] / [id number]
== END 2018-03-10 09:55 | disposition home or self-care (01) | DRG 378 ==
LOC: ER 04:43 → 5 SOUTH 06:20 → ER 08:30 → 1 WEST ICU 20:13 → 5 NORTH 03-09 13:30
PROVIDERS: ADMIT Internal Medicine; ATTEND Internal Medicine
DX: K57.33 Diverticulitis of large intestine without perforation or abscess with bleeding (principal); E87.1 Hypo-osmolality and hyponatremia; I10 Essential (primary) hypertension; E11.9 Type 2 diabetes mellitus without complications; E66.9 Obesity, unspecified; D35.02 Benign neoplasm of left adrenal gland; F17.210 Nicotine dependence, cigarettes, uncomplicated; Z85.46 Personal history of malignant neoplasm of prostate; Z82.49 Family history of ischemic heart disease and other diseases of the circulatory system; Z79.82 Long term (current) use of aspirin; Z68.32 Body mass index [BMI] 32.0-32.9, adult; Z86.010 Personal history of colon polyps; Z90.79 Acquired absence of other genital organ(s); Z92.3 Personal history of irradiation; Z80.9 Family history of malignant neoplasm, unspecified
CPT/HCPCS: 36415; 74177; 78278; 80048; 80053; 82274; 82962; 85014; 85018; 85025; 85610; 86850; 86900; 86901; 87641; 93005; 96361; 96374; A9560; C9113; J7030; J7040; Q9966; Q9967; 99285-25

== ENCOUNTER 2018-04-22 00:40 | Emergency (ER) | payer MEDICARE, OTHER ==
[~2018-04-22] VITALS: Ht 182.9 cm; Wt 106.6 kg
[~2018-04-22 00:40] MED LIST changes: +METF500T16 PO; -METF500T5 PO
[2018-04-22] MEDS ORDERED: IPRATRPIUM/ALBUTEROL 0.5/2.5MG 3 ML NEBU. ONE (01:08)
[2018-04-22] MEDS ORDERED: IPRATRPIUM/ALBUTEROL 0.5/2.5MG 3 ML NEBU. NEB ONE (01:15)
[2018-04-22 02:58] VITALS: BP 161/77
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
== END 2018-04-22 03:07 | disposition home or self-care (01) ==
LOC: ER 00:40
DX: J70.5 Respiratory conditions due to smoke inhalation (principal); E11.9 Type 2 diabetes mellitus without complications; E78.00 Pure hypercholesterolemia, unspecified; I10 Essential (primary) hypertension; F17.200 Nicotine dependence, unspecified, uncomplicated
CPT/HCPCS: 71046; 94640; 99284; J7620

== ENCOUNTER → 2020-11-27 | Outpatient (CLI) | payer MEDICARE ==
[2018-06-30 08:59] VITALS: BP 115/67
[~2020-11-27] MED LIST changes: +AMLO-186 PO; +BARIUM SULFATE 340 GM SUSPENSION. PO ONE; +BARIUM SULFATE 60% 355 ML SUSP PO ONE; +DOCU-109 PO; +FOLI1TAB16 PO; +GLIM1TAB7 PO; +IMIP25TA35 PO; +LISI1TAB20 PO; -LISI1TAB7 PO; +METF-658 PO; -OXYB10TA PO; +OXYB10TA26 PO; +SIMETHICONE/SOD BICARB/CITRIC ACID PACKET. PO ONE; +THIA100T22 PO
--- NOTE | 2020-11-27 08:52 | RAD ---
EXAM: Barium esophagram. HISTORY: 75-year-old male presents with a 2 1/2 month history of severe dysphagia. The patient report s regurgitation of solid and liquid bolus and significant unintentional weight loss. TECHNIQUE: Fluoroscopic imaging was performed in the upright position during the oral administration of thin barium contrast. Recumbent images and air contrast images were not obtained due to severe miguel angel sis and minimal transit of bolus beyond the gastroesophageal junction throughout the exam. 6 fluorosc opic images were obtained for total fluoroscopy time of 1 minute. COMPARISON: None.. FINDINGS: There is a patulous esophagus containing mucous and/or previously ingested oral bolus mater ial. There is significant delayed transit of contrast beyond the gastroesophageal junction due to an approximately 2.8 cm segment of severe luminal narrowing at the gastroesophageal junction. There are extensive esophageal tertiary contractions. The patient experienced recurrent emesis precluding furth er swallowing attempts. IMPRESSION: Patulous esophagus containing mucous and/or previously ingested oral bolus material, limi ting evaluation for an esophageal mucosal lesion. This appears to be secondary to an approximately 2. 8 cm stricture or segment of severe luminal narrowing at the gastroesophageal junction. Minimal contr ast is seen traversing this segment of luminal narrowing. There are extensive esophageal tertiary con tractions. The patient experienced emesis which precluded further swallowing attempts. Direct endosco pic evaluation is recommended. Electronically signed by: Felicita Montoya MD (11/27/2020 8:50 AM) [id number]
== END ==
LOC: RAD 07:13
PROVIDERS: ATTEND Surgery
DX: R13.10 Dysphagia, unspecified (principal)
CPT/HCPCS: 74220